=== PATIENT | female | born 1980 | race Caucasian/White ===

== ENCOUNTER 2016-08-02 13:09 | Emergency (ER) | payer OTHER ==
[~2016-08-02] VITALS: Ht 152.4 cm; Wt 74.3 kg
[2016-08-02 13:35] LABS: ADD MIUA? YES; BILIRUBIN NEGATIVE; BLOOD SMALL; COLOR COLORLESS ((YELLOW)); GLUCOSE (STRIP) NEGATIVE; KETONES NEGATIVE; LEUKOCYTES NEGATIVE; NITRITE NEGATIVE; PROTEIN (STRIP) NEGATIVE; SPECIFIC GRAVITY 1.003 (1.000-1.030); UROBILINOGEN 0.2 MG/DL (0.2-1.0)
[2016-08-02 13:38] LABS: BACTERIA NONE SEEN /HPF; EPITHELIAL CELLS RARE /HPF; MUCUS TRACE /LPF; RED BLOOD CELLS 0-5 /HPF (0-5); UCUL ADDED? NO; WHITE BLOOD CELLS 0-5 /HPF (0-5)
[2016-08-02] MEDS ORDERED: METHADOSE40 MG PO (14:32)
[2016-08-02 14:53] LABS: HEMATOCRIT 37.9 % (36.0-46.0); MCH 26.1 PG (29.0-34.0); MCHC 32.2 G/DL (30.0-36.0); MCV 81.2 FL (83-99); MEAN PLAT.VOLUME 9.6 uM^3 (9.5-12.4); PLATELET COUNT 276 K/uL (156-360); RBC DIS.WIDTH-CV 14.9 % (11.8-14.6); RED BLOOD COUNT 4.67 M/uL (3.80-5.20); WHITE BLOOD COUNT 10.3 K/uL (4.1-10.2)
[2016-08-02 15:09] LABS: CHLORIDE 105 mEq/L (99-109); POTASSIUM 3.8 mEq/L (3.7-5.4); SODIUM 139 mEq/L (136-147)
[2016-08-02 15:11] LABS: GLUCOSE 105 mg/dL (70-99)
[2016-08-02 15:12] LABS: ANION GAP 9 MEQ/L (2-14)
[2016-08-02 15:13] LABS: TOTAL BILIRUBIN 0.5 mg/dL (0.0-1.0)
[2016-08-02 15:14] LABS: ALKALINE PHOSPHATASE 68 IU/L (3-129)
[2016-08-02 15:15] LABS: GFR ESTIMATE (CALCULATED) > 59 mL/min/
[2016-08-02 15:16] LABS: UREA NITROGEN (BUN) 10 mg/dL (9-23)
[2016-08-02 15:23] LABS: QUANTITATIVE HCG < 4.0 MIU/ML
[2016-08-02] MEDS ORDERED: COLACE100 MG PO (17:44)
[2016-08-02 17:50] VITALS: BP 136/81
[2016-08-02 18:03] LABS: CANDIDA DNA PROBE NEGATIVE; GARDNERELLA DNA PROBE NEGATIVE; INTERNAL CONTROL VALID? YES
[2016-08-04 12:55] LABS: CHLAMYDIA TRACHOMATIS NEGATIVE; NEISSERIA GONORRHOEAE NEGATIVE
== END 2016-08-02 17:51 | disposition home or self-care (01) ==
LOC: EME 13:09
PROVIDERS: Nurse Practitioner Family
DX: K59.00 Constipation, unspecified (principal); R10.32 Left lower quadrant pain; F11.20 Opioid dependence, uncomplicated; E78.5 Hyperlipidemia, unspecified; F17.200 Nicotine dependence, unspecified, uncomplicated
CPT/HCPCS: 74020; 80053; 81003; 84702; 85027; 87210; 87480; 87491; 87510; 87591; 87660; 99281; 99284

== ENCOUNTER 2017-06-01 06:50 | Emergency (ER) | payer OTHER ==
[~2017-06-01] VITALS: Ht 152.4 cm; Wt 75.0 kg
[~2017-06-01 06:50] MED LIST: COLACE100 MG PO; METHADOSE40 MG PO
[2017-06-01 07:24] LABS: HEMATOCRIT 38.5 % (36.0-46.0); HEMOGLOBIN 13.3 G/DL (11.9-15.5); MCH 29.8 PG (29.0-34.0); MCHC 34.5 G/DL (30.0-36.0); MCV 86.3 FL (83-99); PLATELET COUNT 282 K/uL (156-360); RBC DIS.WIDTH-CV 13.9 % (11.8-14.6); RED BLOOD COUNT 4.46 M/uL (3.80-5.20); WHITE BLOOD COUNT 13.8 K/uL (4.1-10.2)
[2017-06-01 07:29] LABS: APPEARANCE SL.HAZY ((CLEAR)); BILIRUBIN NEGATIVE; BLOOD MODERATE; COLOR YELLOW ((YELLOW)); GLUCOSE (STRIP) 150; KETONES NEGATIVE; LEUKOCYTES NEGATIVE; NITRITE NEGATIVE; PROTEIN (STRIP) NEGATIVE; SPECIFIC GRAVITY 1.014 (1.000-1.030); UROBILINOGEN 0.2 MG/DL (0.2-1.0)
[2017-06-01 07:44] LABS: BACTERIA NONE SEEN /HPF; CALCIUM OXALATE CRYSTALS 2+ /HPF; EPITHELIAL CELLS RARE /HPF; MUCUS TRACE /LPF; RED BLOOD CELLS TNTC /HPF (0-5); UCUL ADDED? YES
[2017-06-01 07:53] LABS: CHLORIDE 102 MEQ/L (99-109); CREATININE 1.1 MG/DL (0.6-1.3); GFR ESTIMATE (CALCULATED) > 59 mL/min/; GLUCOSE 133 mg/dL (70-99); POTASSIUM 3.8 MEQ/L (3.7-5.4); SODIUM 135 MEQ/L (136-147); UREA NITROGEN (BUN) 12 mg/dL (9-23)
[2017-06-01] MEDS ORDERED: ULTRAM50 MG PO (10:49)
[2017-06-01] MEDS ORDERED: FLOMAX0.4 MG PO (10:49)
[2017-06-01] MEDS ORDERED: ZOFRAN4 MG PO (10:49)
[2017-06-01] MEDS ORDERED: TORADOL10 MG PO (10:50)
[2017-06-01 11:09] VITALS: BP 119/91
== END 2017-06-01 11:05 | disposition home or self-care (01) ==
LOC: EME 06:50
PROVIDERS: Emergency Medicine
DX: N20.1 Calculus of ureter (principal); F17.200 Nicotine dependence, unspecified, uncomplicated; Z87.442 Personal history of urinary calculi; Z87.440 Personal history of urinary (tract) infections; Z88.0 Allergy status to penicillin; Z91.040 Latex allergy status
CPT/HCPCS: 74176; 80048; 81003; 85027; 87086; 99281; 99285; J7030

== ENCOUNTER → 2017-06-29 | Outpatient (CLI) | payer OTHER ==
[~2017-06-29] MED LIST changes: +FLOMAX0.4 MG PO; +TORADOL10 MG PO; +ULTRAM50 MG PO; +ZOFRAN4 MG PO
== END | disposition home or self-care (01) ==
LOC: CDC 13:24
DX: Z79.891 Long term (current) use of opiate analgesic (principal)
CPT/HCPCS: 93000